=== PATIENT | male | born 1985 | race Caucasian/White ===

== ENCOUNTER 2019-06-19 20:41 | Emergency (ER) | payer BC ==
[~2019-06-19] VITALS: Ht 188 cm; Wt 79.4 kg
--- NOTE | 2019-06-19 20:48 | NUR ---
ED Nurse Note: pt presents to ED via EMS arrival RA 67 from home for a substance abuse concern. per EMS, pt took a tablet that he was told was LSD, he has taken LSD in the past but this time feels differently. he is having audtory and visual hallucinations, pt denies any pain right now. did not LOC.
--- NOTE | 2019-06-19 20:52 | NUR ---
ED Nurse Note: pt is AOx4, follows commands but appears to be anxious, stating that he "does not feel good."
[2019-06-19 20:53] VITALS: BP 154/97
--- NOTE | 2019-06-19 20:57 | NUR ---
ED Nurse Note: pt is speaking on the phone with someone he has on speaker who he feels comfortable having there while he is being examined. he is directing questions toward this person.
--- NOTE | 2019-06-19 21:22 | Emergency Room Report ---
History of Present Illness General Chief Complaint: Substance Abuse Source: Patient Present Illness HPI This a 33-year-old male with no past medical history. He presents with chief complaint of possible overdose. He said that he bought some LSD from someone he did not know. After taking it he said his heart rate was beating fast. He gets numbness to his fingers and feet. He also get numbness around his face and felt dizzy. He felt better now. Never had this problem before when he took LSD. Denies any nausea vomiting. Denies any other complaint. No suicidal thoughts homicidal thought. No hallucination or delusion. Allergies: Coded Allergies: No Known Allergies (Unverified , 06/19/19) Patient History Past Medical History: see triage record, old chart reviewed Past Surgical History: none Pertinent Family History: none Social History: Denies: smoking Immunizations: other Reviewed Nursing Documentation: PMH: Agreed; PSxH: Agreed Nursing Documentation-PM Past Medical History: No Stated History Review of Systems Eye: Denies: eye pain, blurred vision ENT: Denies: ear pain, nose congestion, throat swelling Respiratory: Denies: cough, shortness of breath Cardiovascular: Denies: chest pain, palpitations Gastrointestinal: Denies: abdominal pain, diarrhea, nausea, vomiting Musculoskeletal: Denies: back pain, joint pain Skin: Denies: rash Neurological: Reports: numbness; Denies: headache Endocrine: Denies: increased thirst, increased urine Hematologic/Lymphatic: Denies: easy bruising All Other Systems: negative except mentioned in HPI Physical Exam Vital Signs Date Time Temp Pulse Resp B/P (MAP) Pulse Ox O2 Delivery O2 Flow Rate FiO2 06/19/19 20:40 98.4 145 24 180/105 (130) 98 Room Air Vitals with tachycardia Sp02 EP Interpretation: reviewed, normal General Appearance: well appearing, no apparent distress, alert Head: normocephalic, atraumatic Eyes: bilateral eye PERRL, bilateral eye EOMI ENT: hearing grossly normal, normal pharynx Neck: full range of motion, supple, no meningismus Respiratory: chest non-tender, lungs clear, normal breath sounds Cardiovascular #1: regular rate, rhythm, no murmur Gastrointestinal: normal bowel sounds, non tender, no mass, no organomegaly, no bruit, non-distended Musculoskeletal: back normal, normal range of motion, gait/station normal Psychiatric: mood/affect normal Medical Decision Making Diagnostic Impression: Primary Impression: Substance abuse ER Course Patient with a reaction to the drug treated. Most likely panic attack induced by the drug. He is better now. Heart rate normalized. No other drugs in the system. Will discharge home. No suicidal thoughts homicidal thought. Last Vital Signs Date Time Temp Pulse Resp B/P (MAP) Pulse Ox O2 Delivery O2 Flow Rate FiO2 06/19/19 20:53 130 154/97 06/19/19 20:53 24 Room Air 06/19/19 20:40 98.4 98 Status: improved Disposition: HOME, SELF-CARE Condition: Stable Patient Instructions: Substance Use Disorder Additional Instructions: Follow-up with your doctor in 7 days. Return if symptoms worsen. Jovi Quesada MD Jun 19, 2019 21:22
--- NOTE | 2019-06-19 21:24 | NUR ---
ED Nurse Note: pt came with IV line in L hand started by EMS prior to arrival. IV is patent and intact, flushes without complications. pt unable to provide urine at this time, will continue to run fluids until pt can provide one. ERMD aware
--- NOTE | 2019-06-19 21:53 | NUR ---
ED Nurse Note: pt verbalized to his friend on the phone that he is "feeling better." will continue to wait for pt to be able to provide urine sample
--- NOTE | 2019-06-19 22:10 | NUR ---
ED Nurse Note: pt states he is feeling better and no longer wants to receive IV fluids. ERMD notified
[2019-06-19 22:40] VITALS: BP 154/97
--- NOTE | 2019-06-19 22:40 | NUR ---
ED Nurse Note: Pt cleared by health care Provider for discharge. DC instructions were given and explained to pt and verbalized understanding of teachings. All medical deviecs such as ID band removed. Pt is AAO x4, ambulatory and left with all personal belongings.
== END 2019-06-19 22:40 | disposition home or self-care (01) ==
LOC: EDBD 20:41 → EMR 21:35
DX: F16.10 Hallucinogen abuse, uncomplicated (principal)
CPT/HCPCS: 80307; 96360; 99284; J7030